=== PATIENT | male | born 1960 | race Caucasian/White ===

== ENCOUNTER 2019-09-19 06:40 | Emergency (ER) | payer OTHER ==
[~2019-09-19] VITALS: Ht 182.9 cm; Wt 92.1 kg
[2019-09-19 06:48] VITALS: BP 177/103
--- NOTE | 2019-09-19 06:58 | NUR ---
FLU SWAB COLLECTED.
--- NOTE | 2019-09-19 06:58 | NUR ---
TRAYD MADE AWARE OF PT BLOOD PRESSURE
--- NOTE | 2019-09-19 06:58 | NUR ---
58/M C/O COUGH AND SORETHROAT X 2DAYS.PMH - HTN. BP 177/103 AT TRIAGE ROOM. PATIENT STATES PAIN OF 0/10 AT THIS TIME. PATIENT POSITIONED FOR COMFORT; HOB ELEVATED; BEDRAILS UP X1; BED DOWN. ER MD MADE AWARE OF PT STATUS.
--- NOTE | 2019-09-19 06:58 | NUR ---
FLU SWAB COLLECTED, PATIENT WALKED TO BED 3
--- NOTE | 2019-09-19 07:09 | NUR ---
BP 173/95 AT THIS TIME.
--- NOTE | 2019-09-19 07:23 | NUR ---
Patient being evaluated by dr zayas at bedside.
[2019-09-19] MEDS ORDERED: IBUPROFEN 600 MG TAB PO ONE (07:30)
[2019-09-19] MEDS ORDERED: cloNIDine 0.1 MG TAB PO ONE (07:35)
[2019-09-19 07:50] VITALS: BP 165/95
--- NOTE | 2019-09-19 07:50 | NUR ---
Patient discharged with BP DECREASE TO 165/95 & HEADACHE 09/12 AT THIS TIME.Written and verbal after care instructions given and explained. Patient alert, oriented and verbalized understanding of instructions. Ambulatory with steady gait. All questions addressed prior to discharge. ID band removed. Patient advised to follow up with PMD. Rx of ibuprofen & promethazine given. Patient educated on indication of medication including possible reaction and side effects. Opportunity to ask questions provided and answered.
--- NOTE | 2019-09-19 07:50 | NUR ---
Note [email or web address] in EDM - 09/19/19 at 0751 by [facility] Patient discharged with v/s stable. Written and verbal after care instructions given and explained. Patient alert, oriented and verbalized understanding of instructions. Ambulatory with steady gait. All questions addressed prior to discharge. ID band removed. Patient advised to follow up with PMD. Rx of ibuprofen & promethazine given. Patient educated on indication of medication including possible reaction and side effects. Opportunity to ask questions provided and answered.
== END 2019-09-19 07:50 | disposition home or self-care (01) ==
LOC: MED 06:40
DX: B34.9 Viral infection, unspecified (principal); J06.9 Acute upper respiratory infection, unspecified; R51 Headache; I10 Essential (primary) hypertension
CPT/HCPCS: 87804; 99283